=== PATIENT | female | born 1985 | race Hispanic/Latino ===

== ENCOUNTER 2024-11-08 06:16 | Day surgery (SDC) | payer BC ==
[~2024-11-08] VITALS: Ht 157.5 cm; Wt 87.5 kg
[2024-11-08] VITALS (9 sets, daily range): BP systolic 118–140; BP diastolic 64–85; PULSE 66–75; RESP 15–18; TEMP 97–98.1
[~2024-11-08 06:16] MED LIST: FERS325 PO; MESA1.2T3 PO; MESA4ENE4 PR
[2024-11-08] MEDS: 0.9%NACL 1000ML 1,000 ML IV ONE (06:55)
[2024-11-08] MEDS ORDERED: LIDOCAINE PF 100MG/5ML (2%) SYRINGE 5ML ONE (07:42)
--- NOTE | 2024-11-08 09:12 | NUR ---
Full and complete discharge instructions given to Patient and Family both verbally and in writing by DEMOND Nevarez. Explained GI procedure precautions and follow up. All questions answered. PIV removed with catheter tip intact. Home with Family W/C to POV.
== END 2024-11-08 09:14 | disposition home or self-care (01) ==
LOC: ENDO 06:16 → DAH 06:16 → ENDO 09:14
PROVIDERS: ATTEND Surgery
DX: R10.13 Epigastric pain (principal); K44.9 Diaphragmatic hernia without obstruction or gangrene; K22.89 Other specified disease of esophagus; K91.1 Postgastric surgery syndromes; E55.9 Vitamin D deficiency, unspecified; D64.9 Anemia, unspecified; K21.9 Gastro-esophageal reflux disease without esophagitis; Z98.84 Bariatric surgery status; Z90.49 Acquired absence of other specified parts of digestive tract; Z90.89 Acquired absence of other organs; Z79.899 Other long term (current) drug therapy
CPT/HCPCS: 43270; 81025; J7030; J2003; J2704; A4620; C1726; A4215 ×2; A4223; A4222; A4221; A4663; A4606; J3490